=== PATIENT | female | born 1995 | race Caucasian/White ===

== ENCOUNTER → 2020-08-03 12:39 | Outpatient (CLI) | payer OTHER, SELFPAY ==
--- NOTE | 2020-08-03 12:42 | DI.MRI.S_ITS ---
PROCEDURE: MR ABDOMEN WO/W CON INDICATIONS: Other specified diseases of liver,Intra-abdominal TECHNIQUE: Coronal HASTE, axial 2D FLASH in- and [id number]; axial breath-hold T2 FSE. Dynamic axial VIBE during the administration of contrast; post-contrast coronal VIBE or 2D FLASH with fat saturation from the hepatic dome to the iliac crests. Optional diffusion weighted imaging and ADC may be performed. COMPARISON: None available. FINDINGS: Image quality: Excellent. Lung bases: No basal pleural effusions. Heart size is normal. Solid organs: Laterally within the right hepatic lobe centered between segments 7 and 8, there is an oval mass with slightly lobulated contours measuring up to 4.1 x 3.2 x 3.4 cm. This demonstrates heterogeneous slight hypointensity on T1 and slight hyperintensity on T2. There is an ill-defined internal focus of mild T2 hyperintensity suggestive of a central scar. Following contrast administration, there is heterogeneous hypervascular enhancement on the arterial phase with hypoenhancement of the suspected central scar. On the portal venous phase, there is washout. On the delayed phase, there is slight relative hyperenhancement relative to the hepatic parenchyma. The mass lesion demonstrates restricted diffusion. No other discrete hepatic mass identified. Gallbladder appears within normal limits without gallstones. Biliary system is non dilated. Pancreas is normal in morphology. Spleen is normal in size and enhancement. No adrenal nodules. Kidneys demonstrate no hydronephrosis. There is a cortical cyst posteriorly in the left kidney. Nodes and vessels: No retroperitoneal or mesenteric adenopathy by size criteria. Aorta and inferior vena cava are normal in size. Bowel and peritoneum: Visualized bowel loops are normal in caliber. No free fluid. Bones and soft tissues: No ventral hernias. Bone marrow is normal in overall signal. IMPRESSION: 1. Right hepatic lobe mass demonstrated with mildly hypervascular enhancement and washout on the portal venous phase. However, there is slight hyperenhancement on the delayed phase. The findings are nonspecific and likely represents focal nodular hyperplasia or hepatic adenoma. However hepatocellular carcinoma cannot be excluded. Recommend comparison with prior outside studies when available. Further evaluation may also be obtained with a repeat study utilizing Eovist contrast to assess for focal nodular hyperplasia. Dictated by: John Tirado M.D. on 08/03/2020 at 16:53 Approved by: John Tirado M.D. on 08/03/2020 at 17:01
== END ==
PROVIDERS: PCP Student in an Organized Health Care Education/Training Program; Referring Provider Student in an Organized Health Care Education/Training Program; Visit Provider Student in an Organized Health Care Education/Training Program
DX: K76.89 Other specified diseases of liver (principal); R19.00 Intra-abdominal and pelvic swelling, mass and lump, unspecified site
CPT/HCPCS: 74183

== ENCOUNTER 2021-01-10 14:00 | Emergency (ER) | payer OTHER, SELFPAY ==
[2021-01-10 14:14] VITALS: BP 118/76; PULSE 76; RESP 18; TEMP 36.3; O2SAT 100; BMI 27.1
--- NOTE | 2021-01-10 14:23 | ED.LOWEXIN ---
HPI - Extremity Injury (Lower) General Chief Complaint: Extremity Injury, Lower Stated Complaint: dog bite Time Seen by Provider: 01/10/21 14:12 Source: patient and family Mode of arrival: Wheelchair Limitations: no limitations History of Present Illness HPI Narrative: Patient is a 25-year-old female who presents with dog bite to her left lower leg by a bull dog. 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 She does have contusion and 2 puncture wounds on her leg. Her tetanus is up-to-date. Related Data Previous Rx's Medication Instructions Recorded amoxicillin 875 mg-potassium 1 tab PO Q12H #14 tab 01/10/21 clavulanate 125 mg tablet (Augmentin) Review of Systems Review of Systems Narrative: GENERAL: Denies chills,fever HEENT: Denies throat pain RESPIRATORY: Denies dyspnea, cough, wheezing CARDIOVASCULAR: Denies chest pain, palpitations GASTROINTESTINAL: Denies nausea, vomiting MUSCULOSKELETAL: Denies extremity pain, injury SKIN: See HPI NEUROLOGIC: Denies weakness, dizziness, headache, numbness 8 point review of systems is negative except for those stated above and HPI Patient History Social History Smoking Status: Never smoker Smoking Status: Never smoker alcohol intake frequency: 0-2 drinks per day Alcohol type: beer Substance Use Type: does not use Exam Initial Vital Signs Initial Vital Signs: Vital Signs Temperature 97.4 F L 01/10/21 14:14 Pulse Rate 76 01/10/21 14:14 Respiratory Rate 18 01/10/21 14:14 Blood Pressure 118/76 01/10/21 14:14 Pulse Oximetry 100 01/10/21 14:14 GENERAL: Well-appearing, well-nourished and in no acute distress. CARDIOVASCULAR: peripheral pulses in tact, cap refill <2 sec RESPIRATORY: No respiratory distress, speaks in full sentences without difficulty EXTREMITIES: Normal range of motion, no clubbing or edema. Neurovascularly intact NEUROLOGICAL: Cranial nerves II through XII grossly intact. Normal gait and speech. SKIN: 2 small puncture wounds noted on the left lower leg. Contusion starting to form. Calf is soft Course Orders Ordered: Discontinued Medications Ibuprofen (Ibuprofen 400 Mg Tablet) 800 mg PO NOW ONE Stop: 01/10/21 14:24 Last Admin: 01/10/21 14:33 Dose: 800 mg Documented by: ZAFAR Vital Signs Vital signs: Vital Signs - 8 hr 01/10/21 14:14 01/10/21 15:00 Temperature 97.4 F L Pulse Rate 76 63 Respiratory Rate 18 16 Blood Pressure 118/76 105/55 L Pulse Oximetry 100 95 MDM - Extremity Injury (Lower) MDM Narrative Medical decision making narrative: Wounds are irrigated with sterile water and cleansed. It is quite painful experience for her. She is given Motrin. She is checking it makes her dog's immunizations are up-to-date. Her immunizations are up-to-date. Discussed wound care. Discharge Plan Departure Patient Disposition: Home Clinical Impression: Dog bite Qualifiers: Encounter type: initial encounter Qualified Code(s): W54.0XXA - Bitten by dog, initial encounter Instructions: Animal Bites Activity Restrictions/Additional Instructions: *You have been diagnosed with dog bite to left leg *What to do: At this time your found have a dog bite. Expect it to get swollen and be sore. Elevate and ice as needed. Keep clean and dry with soap and water. May apply antibiotic ointment 1-2 times daily. *Continue to take medications as directed Motrin 800 mg every 8 hours if needed for pain Augmentin 875 mg twice a day *Follow up with your primary care provider in 2-3 days *Return to ER if you should have increasing redness, swelling, pain any new, worsening or concerning symptoms Prescriptions: New amoxicillin-pot clavulanate [Augmentin] 875-125 mg tablet 1 tab PO Q12H Qty: 14 RF: 0 Referrals: Estefania Bro MD [Primary Care Provider] -
--- NOTE | 2021-01-10 14:28 | PC.NURSE ---
patient was bitten by a large albanian bulldog on her left medial calf. She can flex and extend her foot without pain to the calf muscle and complains of localized pain around the bite site. She estimates that the dog latched on for approx 20 secs. It is unknown as to whether or not the dog has been vaccinated against rabies.
[2021-01-10] MEDS: IBUPROFEN 400 MG TABLET 800 MG PO (14:33)
[2021-01-10 15:00] VITALS: BP 105/55; PULSE 63; RESP 16; O2SAT 95
== END 2021-01-10 15:00 | disposition home or self-care (01) ==
PROVIDERS: Emergency Provider Emergency Medicine; PCP Student in an Organized Health Care Education/Training Program
DX: S81.832A Puncture wound without foreign body, left lower leg, initial encounter (principal); W54.0XXA Bitten by dog, initial encounter; Y92.89 Other specified places as the place of occurrence of the external cause; Y99.0 Civilian activity done for income or pay
CPT/HCPCS: 99283

== ENCOUNTER → 2021-08-12 13:41 | Outpatient (CLI) | payer OTHER, SELFPAY ==
[2021-08-12 17:15] LABS: HCG Quantitative /Beta subunit 97815 mIU/mL
== END ==
PROVIDERS: PCP Student in an Organized Health Care Education/Training Program; Referring Provider Obstetrics & Gynecology; Visit Provider Obstetrics & Gynecology
DX: O20.9 Hemorrhage in early pregnancy, unspecified (principal)
CPT/HCPCS: 36415; 84702

== ENCOUNTER → 2021-08-14 12:00 | Outpatient (CLI) | payer OTHER, SELFPAY ==
[2021-08-14 14:33] LABS: HCG Quantitative /Beta subunit 104960 mIU/mL
== END ==
PROVIDERS: PCP Student in an Organized Health Care Education/Training Program; Referring Provider Obstetrics & Gynecology; Visit Provider Obstetrics & Gynecology
DX: O20.9 Hemorrhage in early pregnancy, unspecified (principal)
CPT/HCPCS: 36415; 84702

== ENCOUNTER → 2021-08-24 12:08 | Outpatient (CLI) | payer OTHER, SELFPAY ==
[2021-08-24 14:13] LABS: Add Manual Diff / Slide Review NO; Basophils Absolute Auto 0 /uL (0-100); Basophils Percent Auto 0.5 % (0-2); Eosinophils Absolute Auto 200 /uL (0-450); Eosinophils Percent Auto 3.5 % (2-4); Hemoglobin 13.5 g/dL (12.0-16.0); Lymphocytes Absolute Auto 1600 /uL (1100-4500); Lymphocytes Percent Auto 30.9 % (25-40); Mean Corpuscular HGB Conc 34.5 % (30-36); Mean Corpuscular Hemoglobin 28.4 PG (26-34); Mean Corpuscular Volume 82.2 fL (80-100); Monocytes Absolute Auto 400 /uL (0-900); Monocytes Percent Auto 6.8 % (3-14); Neutrophils Absolute Auto 3100 /uL (1500-7000); Neutrophils Percent Auto 58.3 % (50-75); Platelet Count 246 X10^3/uL (150-400); Red Blood Cell Count 4.74 X10^6/uL (4.0-5.2); Red Cell Distribution Width 13.1 % (11.6-14.8); White Blood Cell Count 5.3 X10^3/uL (4.5-11.0)
[2021-08-24 14:48] LABS: Appearance Urine UA CLEAR; Bilirubin Urine UA NEGATIVE (NEGATIVE); Color Urine UA YELLOW; Glucose Urine UA NEGATIVE (Negative); Ketones Urine UA NEGATIVE (NEGATIVE); Leukocyte Esterase Urine UA 2+ (NEGATIVE); Nitrite Urine UA NEGATIVE (Negative); Occult Blood Urine UA NEGATIVE (Negative); Protein Urine UA NEGATIVE (Negative); Urobilinogen Urine UA 0.2 E.U./dL (0.2)
[2021-08-24 14:53] LABS: Bacteria Urine Few (2-10); RBC Urine 0-1/HPF (0-5/HPF); Squamous Epithelial Cell Urine 0-1 /HPF (0-5/HPF); WBC Urine 5-10/HPF (0-5/HPF)
[2021-08-24 15:41] LABS: Hepatitis B Surface Antigen NEGATIVE s/c (NEGATIVE); Rubella Antibody IgG 5.2 IU/mL (>15)
[2021-08-24 16:04] LABS: HIV 1 & 2 Ab/Ag 4th Gen Combo NEGATIVE (NEGATIVE); Hep C Virus Ab w/Reflex Quant NEGATIVE s/c (NEGATIVE)
[2021-08-24 16:28] LABS: Urine N gonorrhoeae NOT DETECTED
[2021-08-24 17:15] LABS: Urine Chlamydia NOT DETECTED
[2021-08-25 13:24] LABS: RPR Screen Non Reactive (Non Reactive); Varicella IgG Antibody 958 index (Immune >165)
== END ==
PROVIDERS: PCP Student in an Organized Health Care Education/Training Program; Referring Provider Obstetrics & Gynecology; Visit Provider Obstetrics & Gynecology
DX: Z34.00 Encounter for supervision of normal first pregnancy, unspecified trimester (principal)
CPT/HCPCS: 36415; 80055; 81003; 81015; 86787; 86803; 86850; 86900; 86901; 87086; 87389; 87491; 87591

== ENCOUNTER → 2021-09-13 10:48 | Outpatient (CLI) | payer OTHER, SELFPAY | PROVIDERS: PCP Student in an Organized Health Care Education/Training Program; Referring Provider Obstetrics & Gynecology; Visit Provider Obstetrics & Gynecology | DX: Z34.01 Encounter for supervision of normal first pregnancy, first trimester (principal); Z36.0 Encounter for antenatal screening for chromosomal anomalies | CPT/HCPCS: 36415 ==

== ENCOUNTER → 2021-10-21 16:56 | Outpatient (CLI) | payer OTHER, SELFPAY ==
[2021-10-21 18:50] LABS: COVID19 -Nasal RAPID POSITIVE (Negative)
[2021-10-23 19:37] LABS: Gest Age on Col Date 17.9 weeks (.); Insulin Dep Diabetes No (.); OSBR Risk 1IN 4151 (.); Results Report (.); Test Results *Screen Negative* (.)
== END ==
PROVIDERS: PCP Student in an Organized Health Care Education/Training Program; Referring Provider Obstetrics & Gynecology; Visit Provider Obstetrics & Gynecology
DX: Z34.02 Encounter for supervision of normal first pregnancy, second trimester (principal); U07.1 COVID-19; R09.81 Nasal congestion; Z3A.17 17 weeks gestation of pregnancy
CPT/HCPCS: 36415; 82105; 87635

== ENCOUNTER → 2021-10-23 14:19 | Outpatient (CLI) | payer OTHER, SELFPAY | PROVIDERS: PCP Student in an Organized Health Care Education/Training Program; Visit Provider Nurse Practitioner Family | DX: N34.3 Urethral syndrome, unspecified (principal) | CPT/HCPCS: 87086 ==

== ENCOUNTER → 2021-11-09 10:45 | Outpatient (CLI) | payer OTHER, SELFPAY ==
--- NOTE | 2021-11-09 10:47 | DI.US.S_ITS ---
PROCEDURE: US OB >= 14 WEEKS FETUS INDICATIONS: Anatomy scan OUTSIDE/PRIOR DATING DATA: Last menstrual period (LMP): 06/20/2021 LMP-based estimated date of delivery (LEONARDO): 03/21/2022 First dating scan (date and location): 08/24/2021 Estimated date of delivery (LEONARDO) from first dating scan: 03/27/2022. TECHNIQUE: Real-time scanning was performed of the fetus, with image documentation and biometric measurements. Endovaginal scanning: No COMPARISON: None. FINDINGS: General: A single living intrauterine gestation is present. Presentation: Cephalic. Placenta: Placental position is posterior , without previa. Amniotic fluid index: 14.4 cm, normal range is 5-24 cm. Single deepest vertical pocket is 4.2 cm. heart rate: 153 beats per minute. Maternal cervical canal: 3.3 cm long. Normal lower limit is 2.5 cm. biometrics: Biparietal diameter: 5 cm, 21 week 1 day Head circumference: 18.3 cm, 20 week 5 day Abdominal circumference: 15.6 cm, 20 week 5 day Femur length: 3.5 cm, 21 week 1 day Clinically estimated gestational age: 20 week 2 day Composite gestational age from present scan: 21 week 0 day Estimated weight and percentile: 380 g, 81 percentile Anatomic survey: Neuro: Ventricles are non-dilated at less than 10 mm. Cisterna magna is normal at 3-11 mm. Cerebellum is normal in size and morphology. Nuchal skin fold: Normal at less than 6 mm between 14-21 weeks gestational age. Face: Nose and lips, facial profile are normal. Spine: No evidence for spina bifida. Heart: 4-chambered heart is present, with normal ventricular outflow tracts. Diaphragm: Diaphragm is intact. Stomach: Left-sided stomach is present. Kidneys: No hydronephrosis. Normal is less than 5 mm in 2nd trimester, less than 7 mm in 3rd trimester. Cord: 3-vessel cord has orthotopic insertion. Bladder: Normal in size. Extremities: All 4 extremities identified. IMPRESSION: Single live intrauterine consistent with a 21 week 0 day gestation by current ultrasound Approved by: Roberto Schneider M.D. on 11/09/2021 at 12:20
== END ==
PROVIDERS: PCP Student in an Organized Health Care Education/Training Program; Referring Provider Obstetrics & Gynecology; Visit Provider Obstetrics & Gynecology
DX: Z34.02 Encounter for supervision of normal first pregnancy, second trimester (principal); Z3A.21 21 weeks gestation of pregnancy
CPT/HCPCS: 76811

== ENCOUNTER → 2021-12-20 15:11 | Outpatient (CLI) | payer OTHER, SELFPAY ==
[2021-12-20 18:33] LABS: Hematocrit 28.7 % (36-46); Hemoglobin 10.2 g/dL (12.0-16.0)
[2021-12-20 18:51] LABS: GTT (PREG) 1 Hour PP 50gm Dose 146 mg/dL (76-139)
== END ==
PROVIDERS: PCP Student in an Organized Health Care Education/Training Program; Referring Provider Obstetrics & Gynecology; Visit Provider Obstetrics & Gynecology
DX: Z34.02 Encounter for supervision of normal first pregnancy, second trimester (principal); Z3A.26 26 weeks gestation of pregnancy
CPT/HCPCS: 36415; 82950; 85014; 85018

== ENCOUNTER → 2021-12-24 09:04 | Outpatient (CLI) | payer OTHER, SELFPAY ==
[2021-12-24 10:30] LABS: Glucose Fasting Gestational 74 mg/dL (76-95)
[2021-12-24 12:04] LABS: Glucose 2 Hour Gest 112 mg/dL (76-155)
[2021-12-24 12:15] LABS: Glucose 1 Hour Gest 181 mg/dL (76-180)
[2021-12-24 12:25] LABS: Glucose Tol Interp,Gestational INTERPRETATION
[2021-12-24 15:45] LABS: Glucose 3 Hour Gest 29 mg/dL (76-140)
== END ==
PROVIDERS: PCP Student in an Organized Health Care Education/Training Program; Referring Provider Obstetrics & Gynecology; Visit Provider Obstetrics & Gynecology
DX: R73.09 Other abnormal glucose (principal)
CPT/HCPCS: 36415; 82951; 82952

== ENCOUNTER 2022-01-30 13:55 | Outpatient (CLI) | payer OTHER, SELFPAY ==
[2022-01-30 14:34] LABS: Appearance Urine UA CLEAR; Bilirubin Urine UA NEGATIVE (NEGATIVE); Color Urine UA YELLOW; Glucose Urine UA NEGATIVE (Negative); Ketones Urine UA NEGATIVE (NEGATIVE); Leukocyte Esterase Urine UA TRACE (NEGATIVE); Nitrite Urine UA NEGATIVE (Negative); Occult Blood Urine UA NEGATIVE (Negative); Protein Urine UA NEGATIVE (Negative); Specific Gravity Urine UA <=1.005 (1.000-1.035); Urobilinogen Urine UA 0.2 E.U./dL (0.2)
[2022-01-30 14:44] LABS: Bacteria Urine Few (2-10); Culture Indicated Urine Specimen Cultured; RBC Urine None Seen (0-5/HPF); WBC Urine 0-1/HPF (0-5/HPF)
== END 2022-01-30 15:43 | disposition home or self-care (01) ==
LOC: OB 02-01 08:01
PROVIDERS: PCP Student in an Organized Health Care Education/Training Program; Referring Provider Obstetrics & Gynecology; Visit Provider Obstetrics & Gynecology
DX: O47.03 False labor before 37 completed weeks of gestation, third trimester (principal); Z3A.32 32 weeks gestation of pregnancy
CPT/HCPCS: 59025; 81001; 87086; G0378; G0379

== ENCOUNTER → 2022-02-08 08:37 | Outpatient (CLI) | payer OTHER, SELFPAY | PROVIDERS: PCP Student in an Organized Health Care Education/Training Program; Visit Provider Obstetrics & Gynecology | DX: Z34.03 Encounter for supervision of normal first pregnancy, third trimester (principal); R31.9 Hematuria, unspecified; Z3A.33 33 weeks gestation of pregnancy | CPT/HCPCS: 87086 ==

== ENCOUNTER → 2022-02-24 14:24 | Outpatient (CLI) | payer OTHER, SELFPAY ==
[2022-02-25 15:44] LABS: Strep Grp B PCR NEG for Grp B Strep
[2022-02-26 15:35] LABS: Candida species Negative (Negative); Gardnerella vaginalis Negative (Negative); Trichomoas vaginalis Negative (Negative)
== END ==
PROVIDERS: PCP Student in an Organized Health Care Education/Training Program; Visit Provider Physician Assistant Medical
DX: O99.891 Other specified diseases and conditions complicating pregnancy (principal); N89.8 Other specified noninflammatory disorders of vagina; Z3A.35 35 weeks gestation of pregnancy
CPT/HCPCS: 87480; 87510; 87653; 87660

== ENCOUNTER 2022-02-24 14:28 | Outpatient (CLI) | payer OTHER, SELFPAY ==
--- NOTE | 2022-02-24 15:16 | P.TNLD_ITS ---
Visit Information Visit Information Date of evaluation: 02/24/22 Primary OB Provider: Joy Mustafa On-call OB Provider: Ruth Sanchez Reason for Evaluation: Yes rule out labor Vital Signs Vital Signs: Temperature 37.0? blood pressure 122/76 heart rate 80 PFSH Medical History Carpal tunnel syndrome (~2016) Chicken pox (~1998) Fractures (~2018) Hearing loss (~2019) Hypertension (~2016) Irregular menstrual cycle (~2020) Knee pain (~2002) Migraines (~2017) PCOS (polycystic ovarian syndrome) (~2020) PTSD (post-traumatic stress disorder) (~2018) Recurrent sinusitis (~2009) Seizures (~2000) Tinnitus (~2017) Surgical History Anesthesia [place] teeth removed (~04/2011) Family History Father Cancer Vertigo Hypertension Mother Breast cancer Hyperlipidemia Mental health problem Grandfather History of heart disease Grandmother long-term resident Diabetes mellitus Mental health problem Dementia Grandmother Cancer Diabetes mellitus Vertigo Autoimmune disorder Social History marital status: number of children: 0 household members: spouse lives independently: Yes housing: house pets and animals: Yes (dog, 2 cats - aware of toxoplasmosis) education level: college occupational status: unemployed current occupational exposures/hazards: No special temo needs: No seatbelt use: always water heater temp set < 120 deg: Yes working smoke detector in home: Yes fire extinguisher in home: Yes carbon monox detector in home: Yes firearms in home: Yes firearms unloaded and locked: Yes do you feel safe at home: Yes Smoking Status: Never smoker second hand exposure: No alcohol intake: former substance use type: does not use during the past year weight has: remained stable well-balanced diet: daily or most days daily servings fruits/ve-4 caffeine: Yes (limit 200mg per day) Type(s) of exercise: walking and regular exercise Evaluation Evaluation Baseline heart rate: 130 Variability: Moderate (11-25) monitor accelerations: Present Monitor Decelerations: Absent Uterine Contraction Intensity: Mild Category of Tracing: Reactive Diagnosis, Plan/Disposition Final Diagnosis (1) 35 weeks gestation of : Status: Acute Plan/Disposition Plan: 26-year-old at 35 weeks and 4 days sent from clinic due to contractions. She had mild, irregular contractions on the monitor. NST reactive. Follow-up in clinic or return to center as needed. OB Disposition: home
== END 2022-02-24 15:30 | disposition home or self-care (01) ==
LOC: LABOR 15:30 → OB 02-28 08:45
PROVIDERS: PCP Student in an Organized Health Care Education/Training Program; Referring Provider Obstetrics & Gynecology; Visit Provider Obstetrics & Gynecology
DX: O47.03 False labor before 37 completed weeks of gestation, third trimester (principal); Z3A.35 35 weeks gestation of pregnancy; O99.891 Other specified diseases and conditions complicating pregnancy; N89.8 Other specified noninflammatory disorders of vagina
CPT/HCPCS: 59025; 87480; 87510; 87653; 87660; G0378; G0379

== ENCOUNTER 2022-03-17 14:09 | Observation (INO) | payer OTHER, SELFPAY | END 2022-03-17 20:40 | disposition home or self-care (01) | PROVIDERS: Admitting Provider Obstetrics & Gynecology; PCP Student in an Organized Health Care Education/Training Program; Referring Provider Obstetrics & Gynecology; Visit Provider Obstetrics & Gynecology | DX: O47.1 False labor at or after 37 completed weeks of gestation (principal); O36.8130 Decreased fetal movements, third trimester, not applicable or unspecified; Z3A.38 38 weeks gestation of pregnancy | CPT/HCPCS: 59025; 59050; G0378; G0379 ==

== ENCOUNTER 2022-03-26 02:04 | Inpatient (IN) | payer OTHER, SELFPAY ==
[2022-03-26] MEDS: LACTATED RINGERS 1,000 ML 1000 ML IV (03:25)
[2022-03-26] MEDS: LACTATED RINGERS 1,000 ML 100 ML IV ×4 (04:16→10:00)
[2022-03-26 04:34] LABS: Add Manual Diff / Slide Review NO; Basophils Absolute Auto 0 /uL (0-100); Basophils Percent Auto 0.4 % (0-2); Eosinophils Absolute Auto 500 /uL (0-450); Eosinophils Percent Auto 5.1 % (2-4); Hematocrit 32.8 % (36-46); Hemoglobin 11.1 g/dL (12.0-16.0); Lymphocytes Absolute Auto 2200 /uL (1100-4500); Mean Corpuscular HGB Conc 33.8 % (30-36); Mean Corpuscular Hemoglobin 29.4 PG (26-34); Mean Corpuscular Volume 87.2 fL (80-100); Monocytes Absolute Auto 800 /uL (0-900); Monocytes Percent Auto 8.4 % (3-14); Neutrophils Absolute Auto 6500 /uL (1500-7000); Neutrophils Percent Auto 64.1 % (50-75); Platelet Count 174 X10^3/uL (150-400); Red Blood Cell Count 3.76 X10^6/uL (4.0-5.2); Red Cell Distribution Width 13.8 % (11.6-14.8); White Blood Cell Count 10.1 X10^3/uL (4.5-11.0)
--- NOTE | 2022-03-26 07:52 | P.HPOB_ITS ---
OB HPI Date/Time Date of admission: 03/26/22 Date Patient Seen: 03/26/22 Time Patient Seen: 07:52 History of Present Condition Chief complaint: LEONARDO Calculator Estimated Delivery Date Method Current WG Current Estimate 03/27/22 Ultrasound #1 39w 6d Other Estimates 03/21/22 LMP (Uncertain) 40w 5d Estimated Gestational Age (weeks): 39+6 : 1 Para: 0 care: initiated at week # (9), number of visits (13) and pounds weight gain (15) Dating criteria OB: LMP confirmed by 1st trimester US Ultrasounds: normal 1st trimester US and normal mid trimester US Obstetrical complications: other (Fall last ) Medical complications OB: none Indications Operative indications ( section): distress Preadmission Labs Last OB Lab Results: Blood Type A Positive 03/26/22 03:30 Antibody Screen Negative 03/26/22 03:30 Hematocrit 32.8 % (36-46) L 03/26/22 03:30 Hemoglobin 11.1 g/dL (12.0-16.0) L 03/26/22 03:30 Hepatitis B Surface Antigen Negative s/c (NEGATIVE) 08/24/21 13 :10 Hepatitis C Antibody Negative s/c (NEGATIVE) 08/24/21 13:10 Rubella Antibody 5.2 IU/mL (>15) L 08/24/21 13:10 Varicella-Zoster IgG Antibody 958 index (Immune >165) 08/24/21 13:10 Glucose 1 Hour 146 mg/dL (76-139) H 12/20/21 15:38 Group B Streptococcus (PCR) Neg for grp b strep 02/24/22 14:24 Glucose Tolerance Testing: Fasting (74), 1 hr (181), 2 hr (112) and 3 hr (29) -: Chlamydia screen: negative, Gonorrhea screen: negative and Urine: negative -: PAP smear: Normal Genetic Screens: Cell-free DNA: Normal (normal male) and Alpha-fetoprotein: Normal External Labs -: Urine: negative Evaluation Evaluation Baseline heart rate: 125 Variability: Moderate (11-25) monitor accelerations: Present Monitor Decelerations: Early, Late, Recurrent and Variable Contraction Frequency (minutes): 8 Uterine Contraction Intensity: Mild Status: Category ll PFSH Medical History Carpal tunnel syndrome (~2016) Chicken pox (~1998) Fractures (~2018) Hearing loss (~2019) Hypertension (~2016) Irregular menstrual cycle (~2020) Knee pain (~2002) Migraines (~2017) PCOS (polycystic ovarian syndrome) (~2020) PTSD (post-traumatic stress disorder) (~2018) Recurrent sinusitis (~2009) Seizures (~2000) Tinnitus (~2017) Surgical History Anesthesia [place] teeth removed (~04/2011) Family History Father Cancer Vertigo Hypertension Mother Breast cancer Hyperlipidemia Mental health problem Grandfather History of heart disease Grandmother residential resident Diabetes mellitus Mental health problem Dementia Grandmother Cancer Diabetes mellitus Vertigo Autoimmune disorder Social History marital status: number of children: 0 household members: spouse lives independently: Yes housing: house pets and animals: Yes (dog, 2 cats - aware of toxoplasmosis) education level: college occupational status: unemployed current occupational exposures/hazards: No special temo needs: No seatbelt use: always water heater temp set < 120 deg: Yes working smoke detector in home: Yes fire extinguisher in home: Yes carbon monox detector in home: Yes firearms in home: Yes firearms unloaded and locked: Yes do you feel safe at home: Yes Smoking Status: Never smoker second hand exposure: No alcohol intake: former substance use type: does not use during the past year weight has: remained stable well-balanced diet: daily or most days daily servings fruits/ve-4 caffeine: Yes (limit 200mg per day) Type(s) of exercise: walking and regular exercise Meds Home Medications and Allergies Home Medications Medication Instructions Recorded Confirmed Type doxylamine succinate 25 mg tablet 50 mg PO BEDTIME PRN 08/16/21 03/23/22 History (Unisom (doxylamine)) fluticasone propionate 50 1 spray intranasal DAILY 08/16/21 03/23/22 History mcg/actuation nasal spray,suspension (Flonase Allergy Relief) magnesium citrate 125 mg capsule 125 mg PO DAILY 08/16/21 03/23/22 History metformin 500 mg tablet 500 mg PO BID 08/16/21 03/23/22 History prenat.vits,dung,skh-nrrl-fvzcj 1 tab PO DAILY 08/16/21 03/23/22 History pyridoxine (vitamin B6) 100 mg 100 mg PO DAILY 08/16/21 03/23/22 History tablet sertraline 100 mg tablet 100 mg PO DAILY 08/16/21 03/23/22 History ondansetron 4 mg disintegrating 4 mg PO Q8H nausea #20 tabs 09/28/21 03/23/22 Rx tablet Allergies Allergy/AdvReac Type Severity Reaction Status Date / Time No Known Drug Allergies Allergy Unverified 03/23/22 09:26 OB Exam Narrative Exam Narrative: Generally: Patient is sitting on edge of bed, no acute distress Lungs: Clear to auscultation bilaterally Cardiovascular: Regular rate and rhythm Fundal height: 40 cm Estimated weight: 8 lb Abdomen: Soft. Nontender. Extremities: Trace edema Objective Labs Result Diagrams: 03/26/22 03:30 Labs: Laboratory Results - last 24 hr 03/26/22 03/26/22 03:30 03:30 WBC 10.1 RBC 3.76 L Hgb 11.1 L Hct 32.8 L MCV 87.2 MCH 29.4 MCHC 33.8 RDW 13.8 Plt Count 174 Neut % (Auto) 64.1 Lymph % (Auto) 22.0 L [place] % (Auto) 8.4 Eos % (Auto) 5.1 H Baso % (Auto) 0.4 Neut # (Auto) 6500 Lymph # (Auto) 2200 [place] # (Auto) 800 Eos # (Auto) 500 H Baso # (Auto) 0 Blood Type A Positive Antibody Screen Negative Assessment and Plan Assessment and Plan Assessment and Plan narrative: Assessment: 26-year-old 1 para 0 at 39-,6/7 weeks gestation Status post a fall on the ice last week Significantly decreased movement over the last 24 hours Several prolonged decelerations on the monitor including early, variable, and late Remote from delivery Plan: Primary low-transverse section The risks, benefits, and alternatives to the procedure were explained to the patient. The risks including bleeding, infection, injury to the bowel, bladder, or ureters. She understands these risks and agrees to proceed. A full par Q was held and consent form was signed. Time Spent with Patient Total time spent with greater than 50% in coordination of care (as documented) at patient's floor/unit and/or counseling patient:: 15-24 minutes
--- NOTE | 2022-03-26 08:03 | PM.PREOP ---
Pre-operative Note COVID-19 COVID-19 status: Negative Result date/Date tested (Pos, Neg/Pending): 03/26/22 Criteria for continued procedure: Non-surgical alternatives not available or appropriate per current SOC Interval Note History & Physical reviewed/Exam performed by Physician: Yes Changes to H&P: No H&P completed within 30 days and has changed as indicated here:: 03/26/22
[2022-03-26] MEDS: CITRIC ACID/SODIUM CITRATE 15 ML SOLUTION 30 ML PO (08:11)
[2022-03-26] MEDS: CEFAZOLIN 2 GM/100 ML PREMIX 100 ML IV (08:12)
[2022-03-26 08:22] LABS: COVID19 -Nasal RAPID Negative (Negative)
--- NOTE | 2022-03-26 09:02 | SUR.OPER ---
Supine on padded OR bed, head on pillow, arms secured on padded arm boards at <90 degrees abduction, legs uncrossed, safety belt at thigh, sandbag under right flank.
[2022-03-26 09:52] VITALS: BP 115/77; PULSE 82; RESP 14; TEMP 36.4; O2SAT 98
[2022-03-26 09:57] VITALS: BP 113/74; PULSE 67; RESP 76; O2SAT 99
--- NOTE | 2022-03-26 09:58 | PM.OBCS.1 ---
Operative Date/Time/Diagnoses Date of procedure: 03/26/22 Time of procedure: 09:58 Pre-op diagnosis: 39-6/7 weeks gestation Nonreassuring heart rate tracing Decreased movement Status post fall 1 week ago Post-op diagnosis: same Procedure & Clinicians Procedure: Primary low-transverse section Same procedure as scheduled: Yes Indications: 39-,6/7 weeks gestation Nonreassuring heart rate tracing Surgeon: Joy Mustafa Click Yes if Unassisted: No Sheetmetal Patternmaker: Ruth Sanchez Reason for Sheetmetal Patternmaker: The assistant corporate controller was needed to retract upon entry into the abdomen and uterus. She assisted with fundal pressure for delivery of the infant. She assisted with retraction, clipping of suture, and closing of the contralateral fascia. Anesthesia Type: Spinal (With Duramorph) Operative Notes Findings: Live male infant in the LUPIS presentation Short umbilical cord Cord wrapped around both size in a [id number] Normal tubes and ovaries Normal uterus Closure Type: primary Specimen(s): cord blood, cord pH and placenta Intraoperative meds administered: Duramorph, Ketorolac and Pitocin Applied: Catheter (To continuous drainage) Estimated Blood Loss (mL): 850 Blood products transfused: none Procedure in detail: The patient was taken to the operating room where she was placed in the seated position. Spinal anesthesia with Duramorph was administered. She was then placed in the dorsal supine position with a leftward tilt. She was prepped and draped in the usual sterile fashion. A timeout was performed. After spinal analgesia was found to be adequate, a Pfannenstiel skin incision was made 2 fingerbreadths above the pubic symphysis and carried through to the underlying layer fascia. The fascia was nicked in the midline, and the incision extended bilaterally with the Lozoya scissors. The superior aspect of the fascial incision was grasped with a [place] clamps, elevated, and the underlying rectus muscles dissected off sharply and bluntly. Attention was then turned to the inferior aspect of this incision which in a similar fashion was grasped with a [place] clamps, elevated, and the underlying rectus muscles dissected off sharply and bluntly. The rectus muscles were in the midline. The peritoneum was identified, grasped between 2 hemostats, and entered sharply with the Metzenbaum scissors. This incision was extended superiorly and inferiorly with good visualization of the bladder. The bladder blade was inserted. The vesicouterine peritoneum was identified, grasped with the pickup, and entered sharply with the Metzenbaum scissors. This incision was extended bilaterally, and the bladder flap was created digitally. The bladder blade was reinserted. The lower uterine segment was incised in a transverse fashion with the scalpel. Upon entering the amniotic sac there was a moderat amount of meconium-stained amniotic fluid. The infant was delivered without difficulty. There was found to be a cord wrapped in a figure of 8 around both thighs. The nose and mouth were suctioned with bulb suction. The cord was double clamped and cut. The infant was handed off to waiting RN and RT. cord bloods and a segment of cord for cord pH were obtained. The placenta was delivered manually. The uterus was cleared of all clots and debris. The uterine incision was repaired with #1 chromic in a running interlocking fashion, and a second layer the same suture was used for an imbricating layer. Hemostasis was achieved. The tubes and ovaries were examined and were found to be normal. The gutters were cleared of all clots and debris. The bladder flap was reapproximated using 2-0 Vicryl in a running fashion. The parietal peritoneum was closed using 2-0 Vicryl in a running fashion. The fascia was reapproximated using 0 Vicryl in a running fashion. The subcutaneous layer was copiously irrigated with warm normal saline. 5 simple interrupted sutures of 3-0 Vicryl were placed to reapproximate the subcutaneous layer. The skin was closed with 4-0 Monocryl in a subcuticular fashion. Steri-Strips were placed. An Aquacel dressing was placed. The uterus was expressed of a small amount of old blood. Sponge, lap, and instrument counts were correct x-2. The patient tolerated the procedure well, and was taken to PACU in stable condition. Complications: none [place] Baby 1: Infant Gender: Male Presentation: vertex Position: Left Occiput Anterior Placental Delivery Description: Spontaneous Cord Vessel Description: 3 Vessels, Tight, Clamped/Cut and Around Extremity x2 score (1 min): 7 score (5 min): 9 weight: 6 lb 10.4 oz Narrative: Received CPAP x8 minutes Post-operative Condition: stable Disposition: PACU Aftercare: routine postop
[2022-03-26 10:02] VITALS: BP 106/64; PULSE 69; RESP 16; O2SAT 99
[2022-03-26 10:07] VITALS: BP 124/77; PULSE 67; RESP 16; TEMP 36.3; O2SAT 99
[2022-03-26 10:17] VITALS: BP 117/77; PULSE 66; RESP 16; TEMP 36.2; O2SAT 99
[2022-03-26] MEDS: NALBUPHINE 20 MG/ML AMPUL 5 MG IV ×2 (12:19→19:48)
[2022-03-26 13:06] VITALS: BP 127/84
[2022-03-26] MEDS: KETOROLAC 30 MG/ML VIAL IV ×2 (14:28→21:07)
[2022-03-26] MEDS: diphenhydrAMINE 50 MG/ML VIAL 25 MG IV ×2 (14:33→17:37)
[2022-03-26] MEDS: BUTORPHANOL 1 MG/ML VIAL 0.5 MG IV ×2 (16:40→19:48)
[2022-03-27] MEDS: KETOROLAC 30 MG/ML VIAL IV ×2 (03:53→09:42)
[2022-03-27] MEDS: BUTORPHANOL 1 MG/ML VIAL 0.5 MG IV (06:13)
[2022-03-27 06:43] LABS: Hematocrit 21.3 % (36-46); Hemoglobin 7.4 g/dL (12.0-16.0)
[2022-03-27] MEDS: SERTRALINE 50 MG TABLET 100 MG PO (09:01)
[2022-03-27] MEDS: PRENATAL VIT,CALC/IRON/FOLIC 1 TABLET 1 TAB PO (09:01)
[2022-03-27] MEDS: DOCUSATE 100 MG CAPSULE 200 MG PO (09:01)
[2022-03-27] MEDS: LANOLIN OINT 7 GM 1 APPLIC TOP (09:41)
[2022-03-27] MEDS: IRON SUCROSE 300 MG in SODIUM CHLORIDE 0.9% 250 ML 176.667 MG IV (12:45)
--- NOTE | 2022-03-27 16:10 | PM.OBPN.1 ---
Subjective - OB Subjective Patient comments: incisional pain baby status: doing well and nursing well [place] feeding status: exclusively breast feeding Date Patient Seen: 03/27/22 Time Patient Seen: 16:10 Interval history: Postop day #1 status post primary low-transverse section due to nonreassuring heart rate tracing Catheter is out and patient has been able to void. She is walking without assistance. Tolerating a diet. No nausea or vomiting. Exam Vital Signs (past 8 hours): Oxygen Delivery Method Room Air Narrative Exam Narrative: Generally: Patient walking around in room, no acute distress Lungs: Clear to auscultation bilaterally Cardiovascular: Regular rate and rhythm Fundus: Firm at U -2 Incision: Clean dry and intact with Aquacel dressing Extremities: Trace edema, negative [place] Objective Labs Result Diagrams: 03/27/22 06:34 Labs: Laboratory Results - last 24 hr 03/27/22 06:34 Hgb 7.4 L Hct 21.3 L Assessment & Plan Plan day: 1 plan OB: routine postop care Comments: Change ibuprofen and acetaminophen 2 scheduled doses Will hold off on metformin for now Anticipate discharge 03/28/2022 Time Spent With Patient Time: Total time spent is greater than 50% in coordination of care (as documented) at patient's floor/unit and/or counseling patient: Time with patient: less than 15 minutes
[2022-03-27] MEDS: IBUPROFEN 600 MG TABLET PO ×2 (16:13→22:05)
[2022-03-27] MEDS: ACETAMINOPHEN 325 MG TABLET 650 MG PO ×2 (16:14→22:05)
[2022-03-28] MEDS: ACETAMINOPHEN 325 MG TABLET 650 MG PO ×2 (04:03→09:54)
[2022-03-28] MEDS: IBUPROFEN 600 MG TABLET PO ×2 (04:03→09:54)
[2022-03-28 04:23] LABS: Hematocrit 20.2 % (36-46); Hemoglobin 6.9 g/dL (12.0-16.0)
[2022-03-28] MEDS: SERTRALINE 50 MG TABLET 100 MG PO (09:53)
[2022-03-28] MEDS: DOCUSATE 100 MG CAPSULE 200 MG PO (09:54)
[2022-03-28] MEDS: PRENATAL VIT,CALC/IRON/FOLIC 1 TABLET 1 TAB PO (09:55)
--- NOTE | 2022-03-28 10:32 | P.PNOB_ITS ---
Subjective - OB Subjective Patient comments: no complaints, pain well controlled, tolerating diet and flatus present baby status: doing well and nursing well [place] feeding status: exclusively breast feeding Date Patient Seen: 03/28/22 Time Patient Seen: 10:32 Interval history: Postop day # 2 status post primary section due to nonreassuring heart rate tracing Exam Vital Signs (past 8 hours): Oxygen Delivery Method Room Air Narrative Exam Narrative: Generally: Patient is sitting up in bed, no acute distress Lungs: Clear to auscultation bilaterally Cardiovascular: Regular rate and rhythm Fundus: Firm at U -2 Incision: Clean dry and intact with Aquacel dressing Extremities: Trace edema, negative Homans Objective Labs Result Diagrams: 03/28/22 04:02 Labs: Laboratory Results - last 24 hr 03/28/22 04:02 Hgb 6.9 L* Hct 20.2 L* Assessment & Plan Plan day: 2 Comments: Second iron infusion Discharge to home F/U on Monday for Aquacel dressing removal Time Spent With Patient Time: Total time spent is greater than 50% in coordination of care (as documented) at patient's floor/unit and/or counseling patient: Time with patient: 15-24 minutes
--- NOTE | 2022-03-28 10:34 | PM.OBDS.1 ---
Discharge Providers Provider Date of admission: 03/26/22 02:04 Discharge Date: 03/28/22 Primary care physician: Estefania Bro MD Consults: 03/26/22 10:44 Consult to [employer] Routine Comment: Discharge provider: Joy Mustafa MD Summary Hospital Course Date Patient Seen: 03/28/22 Time Patient Seen: 10:34 Diagnoses: 39-6/7 weeks gestation Primary section Nonreassuring heart rate tracing Hospital Course: Patient is a 26-year-old 1 para 1 who is postop day # 2 status post primary low-transverse section due to nonreassuring heart rate tracing, remote from delivery. She presented with decreased movement. She had 2 prolonged decelerations on the monitor. At the time of section she was found to have a body cord in a [id number] around both thighs. Her postoperative course has been complicated by anemia. She has received one iron infusion. She is asymptomatic. Peripartum Data Delivery Method: Emergency Section Procedures: Spinal anesthesia Primary low-transverse section Iron infusion x2 complications: other (Postoperative anemia) 1: Gender: Male Disposition of : home Status at Discharge Cognitive/behavioral status at discharge: oriented Functional status at discharge: independent ambulation Overall status at discharge: patient is progressing back to baseline Time Spent with Patient Time attestation: Total time spent providing and/or coordinating discharge services: Time spent: Less than 30 minutes Objective Labs Result Diagrams: 03/28/22 04:02 Labs: Laboratory Results - last 24 hr 03/28/22 04:02 Hgb 6.9 L* Hct 20.2 L* Exam Vital Signs (past 8 hours): Oxygen Delivery Method Room Air Narrative Exam Narrative: Generally: Patient is sitting up in bed, no acute distress Lungs: Clear to auscultation bilaterally Cardiovascular: Regular rate and rhythm Fundus: Firm at U -2 Incision: Clean dry and intact with Aquacel dressing Extremities: Trace edema, negative Homans Discharge Plan Discharge Plan Patient Disposition: Home Provider Discharge Comment: Call with fever, chills, or redness or drainage around the incision Call with bleeding vaginally more than a pad in an hour Ibuprofen 600 mg every 6 hours as needed Tylenol 650 mg every 6 hours as needed Discharge orders & Medications Prescriptions: Continued metformin 500 mg tablet 500 mg PO BID magnesium citrate 125 mg capsule 125 mg PO DAILY Hold Instructions: She's not sure if safe with sertraline 100 mg tablet 100 mg PO DAILY prenat.vits,dung,rai-fzij-owoqw Tablet 1 tab PO DAILY fluticasone propionate [Flonase Allergy Relief] 50 mcg/actuation spray,suspension 1 spray intranasal DAILY Rx Instructions: administer into each nostril Discontinued ondansetron 4 mg tablet,disintegrating 4 mg PO Q8H Qty: 20 0RF Unisom (doxylamine) 25 mg tablet 50 mg PO BEDTIME PRN pyridoxine (vitamin B6) 100 mg tablet 100 mg PO DAILY Follow up/Referrals: Estefania Bro MD [Primary Care Provider] - Visit Report/Discharge Packet Stand Alone Forms: Patient Portal/API, Stroke Signs & Symptoms Discharge Data Primary Care Provider: Estefania Bro
[2022-03-28] MEDS: IRON SUCROSE 300 MG in SODIUM CHLORIDE 0.9% 250 ML 176.667 MG IV (10:56)
== END 2022-03-28 13:45 | disposition home or self-care (01) | DRG 788 ==
PROVIDERS: Admitting Provider Family Medicine; PCP Student in an Organized Health Care Education/Training Program; Referring Provider Obstetrics & Gynecology; Visit Provider Family Medicine
PROC: 10D00Z1 Extraction of Products of Conception, Low, Open Approach (ICD-10-PCS; CPT 59514; principal; 2022-03-26 08:30)
DX: O76 Abnormality in fetal heart rate and rhythm complicating labor and delivery (principal); Z3A.39 39 weeks gestation of pregnancy; Z37.0 Single live birth; W00.0XXA Fall on same level due to ice and snow, initial encounter; O90.81 Anemia of the puerperium; D50.0 Iron deficiency anemia secondary to blood loss (chronic); Z20.822 Contact with and (suspected) exposure to COVID-19
CPT/HCPCS: 36415; 59050; 59510; 59514; 85014; 85018; 85025; 86850; 86900; 86901; 87635; C9803; G0379; J0595; J0690; J1200; J1756; J1885; J2274; J2300; J2405; J2590; J3010